=== PATIENT | female | born 1960 | race American Indian/Alaskan Native ===

== ENCOUNTER 2017-03-17 00:10 | Emergency (ER) | payer OTHER ==
[2017-03-17 00:49] VITALS: BP 152/70
[2017-03-17] MEDS ORDERED: TORADOL IM ONE (04:17)
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
== END 2017-03-17 05:10 | disposition home or self-care (01) ==
LOC: ED 00:10
DX: M54.2 Cervicalgia (principal); M54.5 Low back pain; I10 Essential (primary) hypertension; V49.49XA Driver injured in collision with other motor vehicles in traffic accident, initial encounter; X58.XXXA Exposure to other specified factors, initial encounter; Y93.9 Activity, unspecified; Y92.9 Unspecified place or not applicable; Y99.9 Unspecified external cause status
CPT/HCPCS: 96372; 99282; J1885